=== PATIENT | female | born 1975 | race Asian ===

== ENCOUNTER 2019-03-11 17:06 | Emergency (ER) | payer SELFPAY ==
[~2019-03-11] VITALS: Ht 157.5 cm; Wt 54.1 kg
[2019-03-11] MEDS ORDERED: CAND4TAB7 PO (17:37)
[2019-03-11] MEDS ORDERED: KETOROLAC TROMETHAMINE 30 MG/ML VIAL IM ONE (20:30)
[2019-03-11 20:39] VITALS: BP 140/80
== END 2019-03-11 20:56 | disposition home or self-care (01) ==
LOC: EMS 17:06
DX: S22.31XA Fracture of one rib, right side, initial encounter for closed fracture (principal); Z79.899 Other long term (current) drug therapy; W18.2XXA Fall in (into) shower or empty bathtub, initial encounter; Y93.E1 Activity, personal bathing and showering; Y92.89 Other specified places as the place of occurrence of the external cause; Y99.8 Other external cause status
CPT/HCPCS: 71100